=== PATIENT | female | born 1955 | race Asian ===

== ENCOUNTER 2016-11-08 08:50 | Outpatient (CLI) | payer OTHER ==
[2016-11-08 09:35] VITALS: BP 128/74
[2016-11-08] MEDS ORDERED: HYDROXYZINE HCL25 M1 PO (09:43)
--- NOTE | 2016-11-08 10:06 | GI Initial Consult Note ---
History of Present Illness General Date patient seen: Nov 08, 2016 Time patient seen: 09:59 Referring physician: TOSHIA Reason for Consultation: SCREENING COLONOSCOPY Present Illness HPI 61 year old female patient referred by Dr. Lakhani for initial screening colnooscopy. The patient presents today with no general GI complaints. She has no medical history and denies any surgical history. Home Meds Reported Medications Hydroxyzine Hcl (HYDROXYZINE HCL) 25 Mg Tablet, PO PRN, TAB 11/08/16 Med list reviewed/reconciled: Yes Allergies: Coded Allergies: Birds (Unverified Allergy, Severe, 11/08/16) Egg (Unverified Allergy, Severe, 11/08/16) Patient History History Provided By: Patient PMH Narrative Denies Family History Narrative Father - DM Mother ESRD Sister - Breast CA Brother Heart Failure / ESRD Social History: Denies: alcohol use, drug use, other, smoking Review of Systems All Other Systems: negative except mentioned in HPI Physical Exam Vital Signs Date Time Temp Pulse Resp B/P Pulse Ox O2 Delivery O2 Flow Rate FiO2 11/08/16 09:35 98.1 65 16 128/74 99 Sp02 EP Interpretation: reviewed General Appearance: well appearing, no apparent distress Head: normocephalic EENT: normal ENT inspection, TMs normal Neck: full range of motion, supple Respiratory: lungs clear, no respiratory distress Cardiovascular: normal peripheral pulses, normal rate Gastrointestinal: normal inspection, non tender, soft Rectal: deferred Genitourinary: normal inspection Musculoskeletal: normal inspection, back normal Neurologic: normal inspection, alert, oriented x3, responsive Psychiatric: normal inspection, judgement/insight normal, memory normal Skin: normal inspection, normal color, no rash Lymphatic: normal inspection, no adenopathy GI: Plan Problems: (1) Colonoscopy planned Plan Colonoscopy to be scheduled pending prior authorization. - [facility] & [employer] prep instructions given and acknowledged by patient. Seen with Dr. Leiva. Thank you for referring this patient. Mckenzie Irvin N.P. Nov 08, 2016 10:06
== END 2016-11-08 09:45 | disposition home or self-care (01) ==
LOC: PAN 08:50
DX: Z12.11 Encounter for screening for malignant neoplasm of colon (principal)
CPT/HCPCS: 99201

== ENCOUNTER 2016-12-12 06:56 | Day surgery (SDC) | payer OTHER ==
[2016-12-12] VITALS (8 sets, daily range): BP systolic 103–144; BP diastolic 62–85
[~2016-12-12] VITALS: Ht 162.6 cm; Wt 59.0 kg
[~2016-12-12 06:56] MED LIST: HYDROXYZINE HCL25 M1 PO
[2016-12-12] MEDS ORDERED: HYDROXYZINE HCL10 M1 PO (07:29)
--- NOTE | 2016-12-12 07:37 | Pre-Procedure Note/Attestation ---
Pre-Procedure Note/Attestation Complete Prior to Procedure Planned Procedure: not applicable Procedure Narrative: colonoscopy Indications for Procedure Pre-Operative Diagnosis: screning Attestation I attest that I discussed the nature of the procedure; its benefits; risks and complications; and alternatives (and the risks and benefits of such alternatives ), prior to the procedure, with the patient (or the patient's legal hr representative). I attest that, if there was a reasonable possibility of needing a blood transfusion, the patient (or the patient's legal hr representative) was given the [facility] standardized written summary, pursuant to the Jake Fareed Blood Safety Act ([place] Health and Safety Code # 1645, as amended). I attest that I re-evaluated the patient just prior to the surgery and that there has been no change in the patient's H&P, except as documented below: MICHAEL MCNEAL Dec 12, 2016 07:37
--- NOTE | 2016-12-12 07:38 | Short Stay Surgery H&P ---
History of Present Illness History of Present Illness Chief Complaint see recent consult note HPI Jacquelyn Benites is a 61 year old female who was admitted on for Colon Screening Patient History Allergies: Coded Allergies: Birds (Unverified Allergy, Severe, 11/08/16) EGG (Unverified Allergy, Severe, 11/08/16) PAST MEDICAL HISTORY: Past Surgeries: Social History: Medication History Miscellaneous Medications Hydroxyzine Hcl (Hydroxyzine Hcl), 10 MG PO, (Reported) Physical Exam Vital Signs Last Vital Signs Date Time Temp Pulse Resp B/P Pulse Ox O2 Delivery O2 Flow Rate FiO2 12/12/16 07:22 97.9 67 17 144/79 100 Room Air Plan Attestation Are the patient's medical conditions optimized for surgery? MICHAEL MCNEAL Dec 12, 2016 07:38
--- NOTE | 2016-12-12 08:59 | Endoscopy Procedure Note ---
Endoscopy Procedure Note Indication for Procedure: screening colon Procedures Performed: colonoscopy Operative Findings/Diagnosis: hemorrhoids, diverticulosis Specimen: none Pt Tolerated Procedure Well: Yes Estimated Blood Loss: none Anesthesiologist: david Implant(s) used?: No 50 yrs or older w/o bx or poly: Yes 10yrs. F/U not recommended: Yes If not recommended, why?: Above average risk 10 yrs. F/U needed: Yes 18 years or older w/prev. colo: No <3yrs. since last colonoscopy: No MICHAEL MCNEAL Dec 12, 2016 08:59
[2016-12-12] MEDS ORDERED: Lidocaine 1% MPF 10mg/ml 5ml ONE (09:00)
[2016-12-12] MEDS ORDERED: LR 1000ml ONE (09:00)
[2016-12-12] MEDS ORDERED: Propofol 10mg/ml 20ml IV ONE (09:00)
--- NOTE | 2016-12-12 09:08 | Anethesia Preoperative Eval ---
Anesthesia Pre-op PMH/ROS General Date of Evaluation: Dec 12, 2016 Time of Evaluation: 09:07 Anesthesiologist: tex ASA Score: ASA 1 Mallampati Score Class I : Soft palate, uvula, fauces, pillars visible Class II: Soft palate, uvula, fauces visible Class III: Soft palate, base of uvula visible Class IV: Only hard plate visible Mallampati Classification: Class II Surgeon: jennifer Diagnosis: screening Surgical Procedure: EGD Anesthesia History: none Family History: no anesthesia problems Allergies: Coded Allergies: Birds (Unverified Allergy, Severe, 11/08/16) EGG (Unverified Allergy, Severe, 11/08/16) Medications: see eMAR Past Medical History Cardiovascular: Denies: CAD, HTN, [place], arrhythmia, other, valve dz Pulmonary: Denies: COPD, NAVA, asthma, other Gastrointestinal/Genitourinary: Denies: CRI, ESRD, GERD, other Neurologic/Psychiatric: Denies: CVA, TIA, dementia, depression/anxiety, other Endocrine: Denies: DM, hypothyroidism, other, steroids Hematology/Immune: Denies: DVT, anemia, bleeding disorder, other Musculoskeletal/Integumentary: Denies: DDD, DJD, OA, RA, edema, other PMH Narrative: none Anesthesia Pre-op Phys. Exam Physician Exam Last Vital Signs Date Time Temp Pulse Resp B/P Pulse Ox O2 Delivery O2 Flow Rate FiO2 12/12/16 07:22 97.9 67 17 144/79 100 Room Air Constitutional: NAD Neurologic: CN 2-12 intact Cardiovascular: RRR Respiratory: CTA Gastrointestinal: S/NT/ND Airway Exam Mallampati Classification 2 Mallampati Score: Class II MO: full ROM: full Dentures: no lower, no upper Anesthesia Pre-op A/P Studies Pre-op Studies: EKG - sr Risk Assessment & Plan Plan: mac Status Change Before Surgery: No Pre-Antibiotics Drug: none YONATAN HARRINGTON CRNA Dec 12, 2016 09:08
--- NOTE | 2016-12-12 09:09 | Immediate Post-Op Evaluation ---
Immediate Post-Op Evalulation Immediate Post-Op Evalulation Procedure: Colonoscopy Date of Evaluation: Dec 12, 2016 Time of Evaluation: 09:00 IV Fluids: 500 Blood Pressure Systolic: 103 Blood Pressure Diastolic: 65 Pulse Rate: 62 Respiratory Rate: 14 O2 Sat by Pulse Oximetry: 100 Temperature (Fahrenheit): 97.5 Nausea: No Vomiting: No Complications none Patient Status: awake, reacts, patent Hydration Status: adequate Drug: none SHYAMRIYONATAN REEDER CRNA Dec 12, 2016 09:09
--- NOTE | 2016-12-12 11:15 | 48 Hour Post Anesthesia Eval ---
Post Anesthesia Evaluation Procedure: Colonoscopy Date of Evaluation: Dec 12, 2016 Time of Evaluation: 11:14 Blood Pressure Systolic: 142 0: 85 Pulse Rate: 74 O2 Sat by Pulse Oximetry: 100 Airway: patent Nausea: No Vomiting: No Hydration Status: adequate Cardiopulmonary Status: stable Mental Status/LOC: patient returned to baseline Post-Anesthesia Complications: none Follow-up care needed: N/A YONATAN HARRINGTON CRNA Dec 12, 2016 11:15
--- NOTE | 2016-12-12 11:46 | Procedure Note ---
DATE OF PROCEDURE: 12/12/2016 SURGEON: Pramod Leiva M.D. PROCEDURE: Colonoscopy. ANESTHESIA: Per A&P TECHNICIAN, Anai Tarrillion. INSTRUMENT: Olympus adult flexible upper colonoscope. INDICATION: Screening colonoscopy evaluation. REASON FOR PROCEDURE: The procedure, risks, benefits, and possible consequences, including hemorrhage, aspiration, perforation and infection, and alternative treatments, were explained to the patient/legal guardian by Dr. Pramod Leiva and the patient/legal guardian understood and accepted these risks. DESCRIPTION OF PROCEDURE: After informed consent was obtained and the patient was adequately sedated, first rectal exam was performed, which was normal. Then, the scope was advanced from the rectum into cecum the appendiceal orifice, ileocecal valve, right upper quadrant palpation. Quality of prep was very good. The patient had evidence of diverticulosis significant in the left colon normal colonoscopic examination. No polyp was seen on his colonoscopic examination. On retroflexion of the rectum, there was evidence of internal hemorrhoids. SUMMARY OF FINDINGS: 1. Diverticulosis. 2. Internal hemorrhoids. RECOMMENDATIONS: Repeat colonoscopy in five years. Pramod Leiva M.D. DR: CHRISTIAN JOB#: [id number] CC:
--- NOTE | 2016-12-14 08:48 | Cardiology Report ---
APPROVED REPORT EKG Measurement Heart [id number] SD [id number] Normal sinus rhythm Normal ECG
== END 2016-12-12 10:10 | disposition home or self-care (01) ==
LOC: GAS 06:56
DX: Z12.11 Encounter for screening for malignant neoplasm of colon (principal); K57.30 Diverticulosis of large intestine without perforation or abscess without bleeding; K64.8 Other hemorrhoids; Z91.012 Allergy to eggs
CPT/HCPCS: 45378; 93005; J2704; J7120; 94003; 94150